=== PATIENT | female | born 1990 | race African-American/Black ===

== ENCOUNTER 2019-10-26 17:27 | Outpatient (CLI) | payer OTHER, SELFPAY ==
--- NOTE | ~2019-10-26 | XR_ITS ---
EXAMINATION: XR hand RT min 3V EXAM DATE: 10/26/2019 17:44 INDICATION: Injury 3 weeks ago, right first finger pain. Initial encounter TECHNIQUE: Right hand frontal, lateral and oblique projections obtained and reviewed. There is no pr ior study for comparison. FINDINGS: Right metacarpal bones are unremarkable. There is subacute fracture through the head of t he right first proximal phalanx with about 4 mm displacement. This extends into the middle of the int erphalangeal joint. Some soft tissue swelling. There is also lucency through the volar plate of the third middle phalanx, appearance is suspicious f or a nondisplaced fracture, could also be subacute. This is at the proximal interphalangeal joint. Pl ease clinically correlate. No other suspicious findings. IMPRESSION: 1. Subacute right first proximal phalangeal head fracture. 2. Probable subacute third middle phalangeal volar plate fracture. Reviewed, dictated and finalized at location A. RTER LAUNDRY
== END 2019-10-26 17:28 | disposition home or self-care (01) ==
LOC: ANHIMG 17:30
PROVIDERS: PCP Internal Medicine; Visit Provider Internal Medicine
DX: S62.640A Nondisplaced fracture of proximal phalanx of right index finger, initial encounter for closed fracture (principal); X58.XXXA Exposure to other specified factors, initial encounter
CPT/HCPCS: 73130

== ENCOUNTER 2019-11-04 01:35 | Day surgery (SDC) | payer OTHER, SELFPAY ==
[2019-11-02 15:18] VITALS: BMI 25.4
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
[2019-11-04] VITALS (8 sets, daily range): BP systolic 120–131; BP diastolic 77–90; PULSE 86–104; RESP 11–20; TEMP 36.6–36.8; O2SAT 95–100
--- NOTE | ~2019-11-04 | XR_ITS ---
XR surgery orthopedic 11/04/2019 17:07 Indication: Intraoperative fixation of fracture involving the first proximal phalanx Procedure: 5 fluoroscopic images of the right first finger. 9 seconds of fluoroscopy time. Comparison: 10/26/2019 Findings: Interval placement of a single screw transfixing intra-articular fracture distal aspect of the first proximal phalanx. Fracture fragments in near-anatomic alignment post reduction. Impression: 1: Near-anatomic alignment of intra-articular fracture involving distal aspect of the right first pro ximal phalanx post intraoperative fixation with a single screw. Reviewed, dictated and finalized at location A. Impression: 1: Near-anatomic alignment of intra-articular fracture involving distal aspect of the right first proximal phalanx post intraoperative fixation with a single screw.
[2019-11-04] MEDS: LACTATED RINGERS 1,000 ML 30 ML IV CONT ×3 (11:20→17:02)
--- NOTE | 2019-11-04 13:31 | SUR.PREOP ---
comfort measures offerred/needs met/ pt was previously informed by her surgeon of delay/acknowledges understanding
[2019-11-04] MEDS: MIDAZOLAM HCL 2 MG/2 ML VIAL IV PUSH (13:51)
--- NOTE | 2019-11-04 13:55 | WPDANESEPPF ---
Anes - Initial Pre Proc Eval Procedure: Operation Date: 11/04/19 12:30 Proposed Procedures p Closed Reduction, Possible Open Reduction Intermal Fixation of Right First Proximal Phalanx - Ye Wayne MD Date/Time: 11/04/19 13:55 Surgeon: Ye Wayne MD Pre Op Diagnosis: Closed Displaced Fx Head Proximal Phalanx Rt Thum Patient Data Age: 29 Gender: F Height: 5 ft Weight: 59.25 kg Last Vital Signs Temp 36.8 C 11/04/19 10:57 Pulse 86 11/04/19 10:57 Resp 20 11/04/19 10:57 BP 131/86 11/04/19 10:57 Pulse Ox 100 11/04/19 10:57 Allergies Allergy/AdvReac Type Severity Reaction Status Date / Time No Known Allergies Allergy Unverified 11/04/19 11:09 Home Medications Medication Instructions Recorded Confirmed Type ipratropium 0.5 mg-albuterol 3 mg 3 ml INHALATION Q4H PRN 07/30/19 11/04/19 History (2.5 mg base)/3 mL nebulization soln ranitidine HCl 300 mg tablet 300 mg PO BID 07/30/19 11/04/19 History amlodipine 5 mg tablet 5 mg PO DAILY #90 tablet 11/02/19 11/04/19 Rx citalopram 40 mg PO DAILY 11/02/19 11/04/19 History hiobrry-hoo-jpqwm-tenof alafen 1 tablet PO DAILY 11/02/19 11/04/19 History [Genvoya] omeprazole 40 mg PO BID 11/02/19 11/04/19 History ondansetron HCl 4 mg PO DAILY 11/02/19 11/04/19 History sucralfate 1 g PO TID 11/02/19 11/04/19 History Patient hx anesthesia problems: none Family hx anesthesia problems: none PMFSH Past Medical History Medical History Chronic back pain COPD (chronic obstructive pulmonary disease) Depression Fatigue GERD (gastroesophageal reflux disease) HIV (human immunodeficiency virus infection) Family History Family History Mother Diabetes mellitus Family history of hypercholesterolemia Family history of mental disorder Depression Hypertension Cerebrovascular accident Sibling Hypertension Patient's sister is in good health Asthma Father Family history of liver disease Hypertension Social History Social History Smoking status: Never smoker Alcohol intake: current Anes - Eval Final PreProcedure Day of Procedure 11/04/19 13:55 Patient weight: normal Heart: regular rate and rhythm Lungs: clear to auscultation Airway: Mallampati scale class II Neurological: alert and oriented Last oral intake: >/= 8 hours ASA classification: IV Emergent: no Anesthetic plan: proceed Anesthesia type and monitoring: general LMA and standard monitoring Informed Consent: The patient's anesthetic plan and its attendant risks and benefits were discussed with the patient/family/POA. Questions were solicited and answers provided to the satisfaction of the patient/family/POA.
[2019-11-04] MEDS: LIDO 1%/EPINEPHRINE 1:100,000 20 ML VIAL 5 ML INFILTRATE (16:04)
--- NOTE | 2019-11-04 16:56 | P.OPB_ITS ---
Procedure Note - Brief Procedure Note - Brief Date of procedure: 11/04/19 Pre-op diagnosis: Closed Displaced Fx Head Proximal Phalanx Rt Thum Post-op diagnosis: same Procedure performed: ORIF right thumb proximal phalanx with 1.5 mm screw. Anesthesia: GLMA Surgeon: Ye Wayne MD Electrician Chief: Didi Drains: No Packing: No Pathology: none sent Complications: No immediate complications Condition: stable Disposition: PACU
--- NOTE | 2019-11-04 17:42 | SUR.PHASEI ---
[id number] Called pt's brother Louie at [phone] per patients request to picj up patient Message left on voicemail
--- NOTE | 2019-11-04 17:43 | SUR.PHASEI ---
[phone] Called patients sister [phone] per patients request for poultry picker. Pt sister sated she is on her way
--- NOTE | 2019-11-06 11:16 | PM.PROC ---
Procedure Note - Detailed Date of procedure: 11/04/19 Pre-op diagnosis: Closed Displaced Fx Head Proximal Phalanx Rt Thum Post-op diagnosis: same Procedure performed: ORIF of closed displaced fracture of the proximal phalanx right thumb Description of procedure: The appropriate digit was identified on the patient and marked in the holding area. She was taken to the operating room and placed supine on the operating table. A time-out was held and confirmed. She was given general endotracheal anesthesia. The hand and forearm were prepped and draped in the usual fashion. The digit was anesthetized with 1% lidocaine with epinephrine. The tourniquet was inflated to 250 mmHg. An attempt was made to do a closed reduction on this fragment but it was several weeks old and could not be moved. A dorsal midline incision was made. The skin flaps elevated. The terminal tendon was intact. We tried to work beneath that. I was able to clean out fracture clot and scar tissue. The fragment was mobilized and was reduced. A single 1.5 mm screw was placed across the fragment to the opposite side. C-arm images revealed this reduction and fixation were satisfactory. the site was irrigated and the wound closed with a running 5 0 nylon suture. A bandage without splint was applied the patient is discharged from the operating room in stable condition. She has a prescription for tramadol at her home already, She received 2 g of Ancef preop. she is not able to take hydrocodone. Cephalexin was also prescribed. Surgeon: Ye Wayne MD
== END 2019-11-04 18:51 | disposition home or self-care (01) ==
PROVIDERS: PCP Internal Medicine; Visit Provider Plastic Surgery
PROC: (CPT 26735; principal; 2019-11-04 12:30)
DX: S62.511A Displaced fracture of proximal phalanx of right thumb, initial encounter for closed fracture (principal); W22.09XA Striking against other stationary object, initial encounter; Z21 Asymptomatic human immunodeficiency virus [HIV] infection status; K21.9 Gastro-esophageal reflux disease without esophagitis; J44.9 Chronic obstructive pulmonary disease, unspecified; F32.9 Major depressive disorder, single episode, unspecified
CPT/HCPCS: 26735; A9270; C1713; J2250; J3010; J7120

== ENCOUNTER 2020-11-07 14:16 | Emergency (ER) | payer OTHER, SELFPAY ==
--- NOTE | ~2020-11-07 | XR_ITS ---
EXAMINATION: XR chest 2V EXAM DATE: 11/07/2020 16:08 INDICATION: Cough and sore throat. TECHNIQUE: Frontal and lateral projections of the chest obtained and reviewed. Comparison is made to prior examination from 08/12/2019. FINDINGS: The lungs are clear. There are no pleural effusions. The cardiomediastinal silhouette is within normal limits. There is no pneumothorax suspected. The bones and soft tissues are unremarkab le. IMPRESSION: No acute cardiopulmonary findings. Reviewed, dictated and finalized at location A.
[2020-11-07 14:20] VITALS: BP 117/78; PULSE 101; RESP 20; TEMP 36.7
[2020-11-07 15:30] VITALS: BP 117/78; PULSE 100; RESP 20; TEMP 36.7; O2SAT 99
--- NOTE | 2020-11-07 17:42 | ED.GENADULT ---
HPI - General Adult General Chief complaint: Headache Stated complaint: fever and sore throat Time Seen by Provider: 11/07/20 15:31 Source: patient Mode of arrival: ambulatory Limitations: no limitations History of Present Illness HPI narrative: Patient with history of COPD, HIV, GERD, hypertension presents with chief complaint of sore throat, low-grade fever, dry cough for 4 days. Patient states she is also has some mild headache. Patient states that he has been temperature at that is 100.3 ?F. Patient states she has been able to eat and drink appropriately. Patient states she thought she should come get checked out but is really wanting to be discharged home. Patient denies any known exposure to Covid. Patient did not receive a flu shot this year. Patient has not received Covid vaccination. Patient denies nausea, vomiting, diarrhea, chest pain or shortness of breath. Related Data Home Medications Medication Instructions Recorded Confirmed yaqwwvq-lvy-qibsz-tenof alafen 1 tablet PO DAILY 11/02/19 09/14/20 [Genvoya] Allergies Allergy/AdvReac Type Severity Reaction Status Date / Time No Known Allergies Allergy Verified 11/07/20 15:33 Review of Systems Review of Systems: Narrative: CONSTITUTIONAL: Reports low-grade fever denies chills, or sweats. EYES: Denies visual changes, redness, or discharge. ENT: Reports sore throat denies rhinorrhea, congestion or otalgia. CARDIOVASCULAR: Denies chest pain, palpitations, or edema. RESPIRATORY: Reports cough denies dyspnea. GASTROINTESTINAL: Denies abdominal pain, nausea, vomiting, or diarrhea. GENITOURINARY: Denies dysuria or hematuria. SKIN: Denies rash or itching. MUSCULOSKELETAL: Denies back pain, joint pain, or myalgia. NEUROLOGIC: Reports headache denies numbness, dizziness, or weakness. PSYCHIATRIC: Denies anxiety or depression. [facility] Past Medical History Medical History (Updated 11/07/20 @ 17:55 by Sherri Joyner PA-C) Chronic back pain COPD (chronic obstructive pulmonary disease) Depression Fatigue GERD (gastroesophageal reflux disease) HIV (human immunodeficiency virus infection) Family History Family History Mother Diabetes mellitus Family history of hypercholesterolemia Family history of mental disorder Depression Hypertension Cerebrovascular accident Sibling Hypertension Patient's sister is in good health Asthma Father Family history of liver disease Hypertension Social History Social History Alcohol intake: current Exam Narrative: Exam Narrative: GENERAL: Disheveled but, well-nourished, and in no acute distress. HEAD: Normocephalic, atraumatic. EYES: PERRLA and EOMI. ENT: Nares clear, no rhinorrhea or epistaxis. Mucous membranes moist. Oropharynx without tonsillar hypertrophy significant erythema, exudate or other lesions. Bilateral TMs pearly moore nonbulging NECK: Supple. No adenopathy or masses. ROM intact. CHEST: Clear to auscultation. No respiratory distress. No wheezes rales or rhonchi HEART: Regular rate and rhythm. ABDOMEN: Soft, nontender, nondistended, normal active bowel sounds. EXTREMITIES: Normal range of motion. No edema. SKIN: Warm, dry, no rash. NEURO: No focal deficits. Alert and oriented x3. PSYCH: Normal mood and affect. Course Vital Signs Vital signs: Vital Signs Temperature 98.0 F 11/07/20 14:20 Pulse Rate 101 H 11/07/20 14:20 Respiratory Rate 20 11/07/20 14:20 Blood Pressure 117/78 11/07/20 14:20 Temperature 98.0 F 11/07/20 15:30 Pulse Rate 100 11/07/20 15:30 Respiratory Rate 20 11/07/20 15:30 Blood Pressure 117/78 11/07/20 15:30 Pulse Oximetry 99 11/07/20 15:30 Medical Decision Making MDM Narrative Medical decision making narrative: X-ray is negative for pneumonia. Instructed patient of the importance of following her for her prima
[2020-11-07 23:58] LABS: SARS-CoV-2 RNA PCR Negative
== END 2020-11-07 18:13 | disposition home or self-care (01) ==
PROVIDERS: Physician Assistant; Emergency Provider Emergency Medicine; PCP Internal Medicine
DX: B34.9 Viral infection, unspecified (principal); Z20.822 Contact with and (suspected) exposure to COVID-19; J44.9 Chronic obstructive pulmonary disease, unspecified; K21.9 Gastro-esophageal reflux disease without esophagitis; Z21 Asymptomatic human immunodeficiency virus [HIV] infection status
CPT/HCPCS: 71046; 87081; 87804; 87880; 99283; C9803; U0003; U0005

== ENCOUNTER 2022-07-04 13:59 | Emergency (ER) | payer MEDICARE, MEDICAID, SELFPAY ==
[2022-07-04 14:02] VITALS: BP 134/97; PULSE 94; RESP 16; TEMP 37.7; O2SAT 100
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
[2022-07-04] MEDS: ACETAMINOPHEN 500 MG TABLET 1000 MG PO (15:31)
== END 2022-07-04 15:53 | disposition home or self-care (01) ==
PROVIDERS: Emergency Provider Nurse Practitioner Family; PCP Internal Medicine
DX: S16.1XXA Strain of muscle, fascia and tendon at neck level, initial encounter (principal); S39.012A Strain of muscle, fascia and tendon of lower back, initial encounter; J44.9 Chronic obstructive pulmonary disease, unspecified; I10 Essential (primary) hypertension; Z21 Asymptomatic human immunodeficiency virus [HIV] infection status; K21.9 Gastro-esophageal reflux disease without esophagitis; Z79.899 Other long term (current) drug therapy; V49.40XA Driver injured in collision with unspecified motor vehicles in traffic accident, initial encounter
CPT/HCPCS: 81025; 99283; A9270

== ENCOUNTER 2022-08-13 05:08 | Outpatient (CLI) | payer MEDICARE, MEDICAID, SELFPAY ==
--- NOTE | 2022-08-13 14:17 | PCRCNOTE ---
Pt unable to perform any PFT tests. Spirometry trials were inaccurate and unreliable for interpretation. Unable to perform DLCO, lung volumes also inaccurate. Pt unable to exhale maximally, unable to take in deep breath and hole. Pt unable to follow instructions. Dr segura has been notified. Spoke to Ariadne. Only charge for today is for the 6MWT.
--- NOTE | 2022-08-14 07:27 | WPDSIXMINUTE ---
Six Minute Walk Procedure Procedure Performed Pulmonary Stress Test (6 min walk) Six Minute Walk Six Minute Walk: This is a 6 minute walk test. The test was performed and interpreted in accordance with the 2014 ERS/ATS task force guidelines. Findings: The patient's resting room air oxygen saturation measured by pulse oximetry was 100% and heart rate was 76 bpm. Patient ambulated for 335 meters and oxygen saturation remained 97 to 100%. Heart rate at the end of the study was 89 bpm. The patient did not qualify for supplemental oxygen at rest or with ambulation. There are no prior studies for comparison.
== END 2022-08-13 05:09 | disposition home or self-care (01) ==
LOC: ANHPFT 08-26 05:09
PROVIDERS: PCP Nurse Practitioner; Visit Provider Nurse Practitioner Family
DX: R06.02 Shortness of breath (principal); R61 Generalized hyperhidrosis; R63.4 Abnormal weight loss; J98.4 Other disorders of lung
CPT/HCPCS: 94618

== ENCOUNTER 2023-06-10 13:41 | Outpatient (CLI) | payer MEDICAID, SELFPAY ==
--- NOTE | ~2023-06-10 | CT_ITS ---
EXAMINATION:CT diagnostic chest wo con DATE: 06/10/2023 13:54 INDICATION: Solitary pulmonary nodule. TECHNIQUE: Computed tomography (CT) of the chest was performed without intravenous contrast. Automate d exposure control and iterative reconstruction technique were employed. The dose-length product (DLP ) was 59.91 mGy-cm. COMPARISON: Chest CT 01/20/2019 FINDINGS: The lungs demonstrate mild atelectasis. No pleural effusion. The heart size is normal. No p ericardial effusion. The bones are unremarkable. IMPRESSION: 1. No pulmonary nodule. Reviewed, dictated and finalized at location E. IMPRESSION: 1. No pulmonary nodule.
== END 2023-06-10 13:42 | disposition home or self-care (01) ==
PROVIDERS: PCP Family Medicine; Visit Provider Physician Assistant
DX: R91.1 Solitary pulmonary nodule (principal)
CPT/HCPCS: 71250

== ENCOUNTER 2023-08-12 10:06 | Emergency (ER) | payer MEDICAID, SELFPAY ==
[2023-08-12 10:19] VITALS: BP 126/89; PULSE 99; RESP 16; TEMP 36.9; O2SAT 98
--- NOTE | 2023-08-12 11:03 | ED.URI ---
HPI - URI/Sore Throat General Chief Complaint: Upper Respiratory Infection Stated Complaint: Cough Time Seen by Provider: 08/12/23 11:05 Source: patient, RN notes reviewed and old records reviewed Mode of arrival: ambulatory Limitations: no limitations History of Present Illness HPI Narrative: 33-year-old female presents to the [facility] with complaints of a cough and congestion that started on Friday, 3 days. States he took a dose of TheraFlu and does not feel better. At 1st patient denied any past medical history. Review of medications, patient HIV +, COPD. Onset (ago): day(s) (3) Treatments prior to arrival: cold medicine Related Data Home Medications Medication Instructions Recorded Confirmed elviteg 150 mg-cob 150 mg-emtricit 1 tablet PO DAILY 06/19/23 06/19/23 200 mg-tenofo alafenam 10 mg tablet (Genvoya) omeprazole 20 mg capsule,delayed 20 mg PO DAILY PRN 07/09/23 release Allergies Allergy/AdvReac Type Severity Reaction Status Date / Time No Known Allergies Allergy Verified 07/09/23 14:34 Review of Systems Review of Systems: All systems reviewed & are unremarkable except as noted in HPI and below Constitutional: Constitutional: Reports no additional constitutional complaints Eyes: Eyes: Reports no additional eye complaints ENT: Reports as per HPI, Reports nasal congestion, Reports nasal discharge, Reports post nasal drip and Reports sinus pressure Cardiovascular: Cardiovascular: Reports no additional cardiovascular complaints, Denies chest pain and Denies dyspnea Respiratory: Respiratory: Reports as per HPI, Denies chest congestion, Reports cough and Denies dyspnea Gastrointestinal: Gastrointestinal: Reports no additional gastrointestinal complaints, Denies abdominal pain, Denies nausea and Denies vomiting Musculoskeletal: Musculoskeletal: Reports no additional musculoskeletal complaints Integumentary/Breasts: Skin/Breast: Reports system reviewed and no additional complaints, except as docu Neurologic: Reports system reviewed and no additional complaints, except as documented Psychiatric: Psychiatric: Reports no additional psychiatric complaints Allergic/Immunologic: Allergic/Immunologic: Reports no additional allergic/immunologic complaints PMFSH Past Medical History Medical History Chronic back pain COPD (chronic obstructive pulmonary disease) Depression Fatigue GERD (gastroesophageal reflux disease) HIV (human immunodeficiency virus infection) Family History Family History Mother Diabetes mellitus Family history of hypercholesterolemia Family history of mental disorder Depression Hypertension Cerebrovascular accident Sibling Hypertension Patient's sister is in good health Asthma Father Family history of liver disease Hypertension Social History Social History Smoking status: Never smoker Alcohol intake: current Lack of Transportation: No Lack of Food: Never True Current Housing: I Have Housing Concerned About Future Housing: No Difficulty Paying Gas/Electric Bills: No Difficulty Paying for Meds: No Currently Unemployed: No Education: High School Diploma/GED Difficulty w/ Childcare or Family Care: No Comments At the time of my signature, I reviewed and agree with the nursing past medical, surgical, social, and family history. There is no relevant family history pertinent to the patient complaint. Exam Const: General: cooperative, healthy appearing, comfortable, no acute distress, well developed, alert and well nourished Nutritional Appearance: well nourished Orientation/consciousness: patient oriented x3 Limitations: no limitations HENMT: Head: normal to inspection Ears: hearing grossly normal bilaterally, external ears normal, TM's normal bilaterally, EAC's normal
== END 2023-08-12 11:21 | disposition home or self-care (01) ==
PROVIDERS: Emergency Provider Nurse Practitioner; PCP Family Medicine
DX: J32.9 Chronic sinusitis, unspecified (principal); J40 Bronchitis, not specified as acute or chronic; J44.9 Chronic obstructive pulmonary disease, unspecified; Z20.822 Contact with and (suspected) exposure to COVID-19
CPT/HCPCS: 87426; 87804; 99213; C9803; G0463

== ENCOUNTER 2024-05-21 12:21 | Outpatient (CLI) | payer OTHER, SELFPAY ==
--- NOTE | 2024-05-21 15:07 | WPDPFTINT ---
PFT Procedure Performed PFT Procedure Performed Spirometry with Pre/Post Bronchodilator Plethysmography (Lung Vol) Diffusing Cap (DLCO) Flow Vol Loop PFT Interpretation This is a pulmonary function test with pre and post-bronchodilator spirometry, plethysmography and diffusing capacity. The test was performed and results interpreted in accordance with the 2019 and 2005 ATS/ERS Task Force guidelines respectively using the Global Lung Function Initiative-2012 reference equations. Patient demonstrated good effort and cooperation. Reproducibility criteria were met. The quality of the pre bronchodilator spirometry maneuver was Grade B and post bronchodilator spirometry maneuver was Grade C. Of note, all testing completed with up double cooperation maximal coaching although this patient struggles with effort requirements of the testing. Multiple trials pre and post spirometry attempted, unable to maximally to plateau. Only 1 DLCO maneuver was obtained. Findings: Spirometry: There is decreased maximal expiratory airflow at all lung volumes with concave expiratory flow tracing. The contour the inspiratory flow tracing is truncated. The pre bronchodilator FVC is 1.72 L, 62% predicted. The pre bronchodilator FEV1 is 1.01 L, 43% predicted. The pre bronchodilator FEV1: FVC ratio is 59%. The post bronchodilator FVC is 1.89 L, representing a 10% increase. The post bronchodilator FEV1 is 1.61 L, representing a 59% increase. The post bronchodilator FEV1: FVC ratio is 85%. Plethysmography: The total lung capacity is 2.35 L, 60% predicted. The functional residual capacity is 0.94 L, 46% predicted. The residual volume is 0.51 L, 43% predicted. Diffusing capacity: The diffusing capacity unadjusted for hemoglobin and carboxyhemoglobin is 16.3, 72% predicted. The diffusing capacity adjusted for alveolar volume is 5.86, 117% predicted. In comparison to previous pulmonary function testing on 08/12/2018 in which the patient was unable to complete a post bronchodilator flow volume loop and unable to complete the DLCO, the pre bronchodilator FVC has increased from 0.90 L to 1.72 L. The pre bronchodilator FEV1 has increased from 0.61 L to 1.01 L. The total lung capacity has decreased from 3.59 L to 2.35 L. The functional residual capacity has decreased from 2.73 L to 0.94 L. The residual volume has decreased from 2.24 L to 0.51 L. Impression: The patient struggled with effort requirements of the testing. There is a combined obstructive and restrictive ventilatory abnormality. There are no guidelines to assign the severity of obstruction and restriction with a combined abnormality. In my opinion, given the moderately concave expiratory flow tracing, moderately decreased FEV1: FVC ratio and moderate restrictive abnormality, I would state there is a moderate obstructive abnormality and a moderate restrictive abnormality resulting in a severe decrease in the FEV1. There is significant improvement after inhaling a single dose of albuterol. The diffusing capacity is normal. Compared to previous pulmonary function testing on 08/12/2018 there has been a greater than anticipated time dependent increase in the pre bronchodilator FVC and pre bronchodilator FEV1 and a greater than anticipated time dependent decrease in the total lung capacity, functional residual capacity and residual volume. Clinical correlation is recommended.
== END 2024-05-21 12:22 | disposition home or self-care (01) ==
LOC: ANHPFT 12:22
PROVIDERS: PCP Family Medicine; Visit Provider Nurse Practitioner Family
DX: R06.09 Other forms of dyspnea (principal); J44.9 Chronic obstructive pulmonary disease, unspecified; J98.4 Other disorders of lung
CPT/HCPCS: 94060; 94726; 94729